=== PATIENT | male | born 1980 | race Caucasian/White ===

== ENCOUNTER 2021-07-16 17:10 | Emergency (ER) | payer OTHER ==
[2021-07-16 20:44] LABS: BASOPHIL 0.7 % (0-2); EOSINOPHIL 0.4 % (0-5); HCT 49.5 % (42.0-52.0); HGB 17.5 g/dl (13.2-18.0); LYMPHOCYTE 12.5 % (15-48); MCH 31.4 pg (25.0-31.0); MCHC 35.4 g/dL (32.0-36.0); MCV 88.9 fL (78.0-100.0); MPV 10.4 fL (6.0-9.5); NEUTROPHIL 79.2 % (41-80); NRBC 0; PLT 285 K/uL (150-400); RBC 5.57 M/uL (4.70-6.00); RDW 12.4 % (11.5-14.0); WBC 8.4 K/uL (4.0-10.5)
[2021-07-16 20:55] LABS: ALBUMIN 4.6 g/dL (3.4-5.0); BUN/CREAT RATIO (CALC) 12.5 RATIO; CREATININE 0.72 mg/dL (0.67-1.17); GLOBULIN (CALCULATION) 3.7 g/dL; POTASSIUM 3.9 mmol/L (3.5-5.1); TOTAL PROTEIN 8.3 g/dL (6.4-8.2)
[2021-07-16] MEDS ORDERED: ATARAX25 MG PO (23:13)
== END 2021-07-16 23:30 | disposition home or self-care (01) ==
LOC: FER 17:10
PROVIDERS: Emergency Medicine
DX: R07.89 Other chest pain (principal); Z20.822 Contact with and (suspected) exposure to COVID-19
CPT/HCPCS: 36415; 71045; 80053; 84484; 85025; 93005; U0002